=== PATIENT | female | born 1955 | race Caucasian/White ===

== ENCOUNTER → 2017-01-29 | Day surgery (SDC) | payer OTHER ==
[~2017-01-29] VITALS: Ht 163.8 cm; Wt 111.8 kg
[~2017-01-29] MED LIST: MAG-OX-400(241400 MG PO; MOTRIN800 MG PO; THERA-VITE W/ B1 TAB PO
--- NOTE | ~2017-01-29 | OR ---
PATIENT'S NAME: MARY DIAZ [facility] AGE: 62 Y [address] ROOM: [place] [address] LOCATION: [facility] [place] DATE: 01/29/2017 OR/Procedure Report DISCHARGE DATE: FAMILY PHYSICIAN: Nahomy Dixon PA-C ATTENDING PHYSICIAN: Ollie Guadalupe SURGEON: Ollie Guadalupe MD DIRECTOR SPECIAL EDUCATION: DATE OF PROCEDURE: 01/29/2017 PREOPERATIVE DIAGNOSIS: Right ureteral calculus. POSTOPERATIVE DIAGNOSIS: Right ureteral calculus. PROCEDURES PERFORMED: 1. Cystoscopy with right ureteroscopy and stone basket extractions. 2. Right ureteral stent placement. ANESTHESIA: General. INDICATIONS: This is a 62-year-old lady with a past history of stone disease. By her description, she has had lithotripsy in the past. She has not been able to pass stones. She has had ongoing pain symptoms. She has had nagging symptoms for some time, but they became acute this morning, prompting a presentation to emergency room. She was found to have a 3 mm to 4 mm right- sided stone in the distal third. Per her preference, she requested intervention. She is transferred here for that. PROCEDURE IN DETAIL: Having obtained her informed consent, the patient was taken to the operating room. She was prepped and draped sterilely and in lithotomy position. General anesthesia was administered. The 21-[place]oz[place] cystoscope was assembled and guided into the urethra. The course of the urethra was unremarkable. She has a mild cystocele. Bladder examination was unremarkable using the 30 and 70 degree lenses. Fluoroscopy was undertaken. I cannot appreciate any significant stones. She is obese and the stone is small. I passed a guidewire up the right side. We met some obstruction just below the SI joint. I manipulated the wire beyond that, and we had a gush of retained fluid and debris. That is the level of obstruction. Over that wire, I passed a balloon dilator. The orifice and intramural tunnel were gently dilated. I then passed the semi-rigid ureteroscope. The stone was visualized as anticipated. It was engaged in a nitinol basket and extracted without tension. It will be sent for stone analysis. PATIENT'S NAME: MARY DIAZ [facility] AGE: 62 Y [address] ROOM: [place] [address] LOCATION: [facility] [place] DATE: 01/29/2017 OR/Procedure Report DISCHARGE DATE: FAMILY PHYSICIAN: Nahomy Dixon PA-C ATTENDING PHYSICIAN: Ollie Guadalupe With the requisite dilation, I opted to stent her. The safety wire was back- loaded into the cystoscope. Over that, I passed a 4.8 Multi-Link stent. We had a nice level of placement cystoscopically and fluoroscopically. The dangler string is left in position. The patient tolerated all this well. BLOOD LOSS: Negligible. SPECIMENS: The stone was sent for analysis. POSTOPERATIVE CONDITION: The patient returned to the outpatient recovery awake, in stable condition. OLLIE GUADALUPE MD [facility]/modl /[id number] CC: Nahomy Dixon PA-C d: 01/30/17 0217 t: 01/30/17 1110, OPERATIVE SUMMARY
[2017-01-29 17:10] LABS: BASOPHIL % 0.3 %; EOSINOPHIL % 0.4 %; HEMOGLOBIN 12.8 g/dL (10.0-15.0); IMMATURE GRANULOCYTE % 0.3 %; LYMPHOCYTE # 2.4 K/uL (0.8-4.0); LYMPHOCYTE % 24.8 %; MCH 28.6 pg (27.0-34.0); MCV 89.3 fl (83.0-98.0); MONOCYTE # 0.9 K/uL (0.0-1.0); MONOCYTE % 9.2 %; MPV 9.6 fl (9.4-12.4); NEUTROPHIL # (ANC) 6.2 K/uL (1.8-7.8); NRBC % 0 /100WBC (0-0.00); PLATELET COUNT 177 K/uL (150-450); RBC 4.48 M/uL (3.50-5.50); RDW-CV 13.7 % (11.9-14.6); WBC 9.6 K/uL (4.0-11.0)
== END | disposition disaster alternative care site (69) ==
LOC: GPOC 15:30 → GSDC 15:30
PROVIDERS: Urology
PROC: 0TC68ZZ Extirpation of Matter from Right Ureter, Via Natural or Artificial Opening Endoscopic (ICD-10-PCS; principal; 2017-01-29)
PROC: 0T768DZ Dilation of Right Ureter with Intraluminal Device, Via Natural or Artificial Opening Endoscopic (ICD-10-PCS; 2017-01-29)
DX: N20.1 Calculus of ureter (principal); N81.10 Cystocele, unspecified; Z88.2 Allergy status to sulfonamides; Z90.49 Acquired absence of other specified parts of digestive tract; Z98.890 Other specified postprocedural states
CPT/HCPCS: C1725; C1769; C2617; J1956; J7030